=== PATIENT | male | born 1975 | race Caucasian/White ===

== ENCOUNTER 2020-08-11 06:15 | Emergency (ER) | payer OTHER ==
[2020-08-11 09:37] LABS: CREATININE 0.8 mg/dL (0.6-1.3); POTASSIUM 3.9 mmol/L (3.5-5.1)
[2020-08-11 09:38] LABS: CALCIUM 8.7 mg/dL (8.5-10.1); TOTAL BILIRUBIN 0.3 mg/dL (<0.1-1.0)
[2020-08-11 09:39] LABS: ALBUMIN 3.9 g/dL (3.4-5.0); TOTAL PROTEIN 7.8 g/dL (6.4-8.2)
[2020-08-11 09:44] LABS: ABSOLUTE BASOPHILS 0.1 thou/uL (0.0-0.2); ABSOLUTE EOSINOPHILS 0.1 thou/uL (0.0-0.7); ABSOLUTE LYMPHOCYTES 2.1 thou/uL (0.8-5.3); ABSOLUTE MONOCYTES 0.4 thou/uL (0.0-1.2); ABSOLUTE NEUTROPHILS 4.9 thou/uL (1.6-8.1); BASOPHILS 1.2 %; HEMATOCRIT 43.6 % (42.0-52.0); HEMOGLOBIN 15.2 gm/dL (14.0-18.0); MCH 32.5 pg (26.0-34.0); MCV 92.9 fL (80.0-100.0); MONOCYTES 5.6 %; MPV 8.6 fl. (7.2-11.1); NUCLEATED RBCS 0 /100WBC; PLATELET COUNT* 157 thou/uL (150-400); POLYS 64.2 %; RBC 4.69 mil/uL (4.50-6.00); RDW-CV 13.6 % (10.5-14.5); WBC 7.6 thou/uL (4.0-11.0)
[2020-08-11] MEDS ORDERED: HYDROCODON-ACE1 EAC7 PO (11:31)
[2020-08-11] MEDS ORDERED: ZOFRAN ODT4 MG DISSOLVE (11:31)
== END 2020-08-11 11:45 | disposition home or self-care (01) ==
LOC: M.ERS 06:15
PROVIDERS: Emergency Medicine Emergency Medical Services
DX: R10.11 Right upper quadrant pain (principal); R11.2 Nausea with vomiting, unspecified